=== PATIENT | male | born 1995 | race Two or more races ===

== ENCOUNTER 2017-10-22 21:16 | Emergency (ER) | payer OTHER ==
[~2017-10-22] VITALS: Ht 170.2 cm; Wt 64.0 kg
[2017-10-23 01:10] VITALS: BP 128/78
== END 2017-10-23 01:10 | disposition home or self-care (01) ==
LOC: ED 21:16
DX: S51.812A Laceration without foreign body of left forearm, initial encounter (principal); W22.8XXA Striking against or struck by other objects, initial encounter; Y93.89 Activity, other specified; Y92.89 Other specified places as the place of occurrence of the external cause; Y99.8 Other external cause status
CPT/HCPCS: 90715; J2001